=== PATIENT | female | born 1980 | race African-American/Black ===

== ENCOUNTER 2023-03-16 11:00 | Emergency (ER) | payer OTHER ==
[~2023-03-16] VITALS: Ht 175.3 cm; Wt 105.0 kg
[~2023-03-16 11:00] MED LIST: IBUP-2029 MT; LABE200T9 MT
[2023-03-16 11:02] VITALS: PULSE 94
[2023-03-16 11:07] VITALS: BP 163/104; RESP 18; TEMP 98.4; O2SAT 100
== END 2023-03-16 14:06 | disposition home or self-care (01) ==
LOC: ER 11:00
DX: Z48.02 Encounter for removal of sutures (principal)
CPT/HCPCS: 99281